=== PATIENT | female | born 1995 ===

== ENCOUNTER 2020-04-30 11:00 | Inpatient (IN) | payer OTHER ==
[~2020-04-30] VITALS: Ht 157.5 cm; Wt 69.9 kg
[2020-05-12] MEDS ORDERED: PRENATAL CAPLE1 EAC1 PO (11:50)
== END 2020-05-15 14:19 | DRG 788 ==
LOC: LDR 05-12 12:40 → OB/GYN 05-12 12:40 → O/R 05-12 18:46 → OB/GYN 05-12 19:18
PROVIDERS: ADMIT Obstetrics & Gynecology; ATTEND Obstetrics & Gynecology
PROC: 4A1HXCZ Monitoring of Products of Conception, Cardiac Rate, External Approach (ICD-10-PCS; 2020-05-12)
PROC: 10D00Z1 Extraction of Products of Conception, Low, Open Approach (ICD-10-PCS; principal; 2020-05-12 15:00)
DX: O62.1 Secondary uterine inertia (principal); Z3A.38 38 weeks gestation of pregnancy; Z37.0 Single live birth

== ENCOUNTER 2020-05-12 10:57 | Outpatient (CLI) | payer OTHER ==
[2020-05-12] MEDS ORDERED: PRENATAL CAPLE1 EAC1 PO (11:50)
== END 2020-05-12 13:15 | disposition still patient (30) ==
LOC: OBS/DEL 10:57
PROVIDERS: ATTEND Obstetrics & Gynecology
DX: O47.1 False labor at or after 37 completed weeks of gestation (principal)